=== PATIENT | male | born 1945 | race Caucasian/White ===

== ENCOUNTER → 2016-11-22 | Outpatient (REF) | payer MEDICARE, BC ==
[~2016-11-22] MED LIST: /AUGM875TA OR; /GLIM4TA OR; /MOXI40TA OR; /PANT40TA OR; /TAMS4CA GT; ALTA10CA OR; AMBI5TAB OR; ASPI81TA83 OR; AUGM250S13 PEG; BACITAB PO; BACITAB3 PO; Bacid PO; CALMOIN EXT; CAMP333T PO; CARA1TAB2 PO; CARV3.12 PO; CARV6.25 PO; CEFD300C OR; CLOP75TA2 PO; COLA100C PO; COLACE PO; DELTASONE; DIFL200T OR; DOCU10ELUD PO; DRIS1CAP PO; DRISDOL OR; FLAG500T PO; FLEX10TA2 PO; FLOM5CAP PO; LEVA750T OR; MORP10SU PO; MORP15TA2 PO; MORP15TASA PO; MULTIVIT PO; OXYC1SOL PO; OXYCO5TA PO; PARO40TA PO; PAXI40TA OR; PERC5TAB8 OR; PERC7.5T12 PO; PERC7.5T8 OR; PLAV75TA2 OR; PRED20TA OR; PRED20TAB PO; PRED5TA PO; PRED5TAB OR; PREDPOW10 GT; PREDPOW10 PO; PREV30TA PEG; PROBCAP4 PO; PROS5TAB PO; PROSCAR PO; ROBITUSSIN OR; SIMV40TA2 OR; SULF10SO3 OU; TUSSIN PO; TYLE325T5 PO; ULTR100T PO; VALI5TAB OR; VALI5TAB PO; VANC1ADVIV INJ; VIT D 2000 PO; VITAD1000T PO; VITAMIN D PO; VOLT1GEL24 TD; VYTO10TA5 OR; ZANT150T PO; ZANT1TAB PO; ZANTTAB PO; ZEBE5TAB OR; ZETI10TA OR; ZETI10TA2 PO; ZITH250T OR; ZOCO40TA PO; [UNRECOGNIZED DRUG - OTHER] PO; [UNRECOGNIZED DRUG - OTHER] TOP; [UNRECOGNIZED DRUG - REMARK] IV; bacid OR; mucinex PO; novolo; voltaren gel TOP
[2016-11-22 12:27] LABS: BASO % 0.6 % (0.0-1.0); EOS # 0.2 K/mm3 (0.0-0.50); EOS % 4.3 % (0.0-3.0); LARGE UNSTAINED CELL # 0.1 K/mm3 (0.0-0.4); LYMPH % 18.9 % (24.0-44.0); MEAN CORPUSCULAR HEMOGLOBIN 33.5 pg (27.0-33.0); MEAN CORPUSCULAR HGB CONC 33.4 g/dl (32.0-36.5); MEAN CORPUSCULAR VOLUME 100.3 fl (80.0-96.0); MONO # 0.4 K/mm3 (0.0-0.8); MONO % 7.6 % (0.0-5.0); NEUTROPHILS % 65.6 % (36.0-66.0); PLATELET COUNT, AUTOMATED 176 k/mm3 (150-450); RED CELL DISTRIBUTION WIDTH 12.5 % (11.5-14.5); WHITE BLOOD COUNT 4.6 K/mm3 (4.0-10.0)
[2016-11-22 13:15] LABS: ALBUMIN 3.1 GM/DL (3.2-5.2); ALBUMIN/GLOBULIN RATIO 0.94 (1.00-1.93); ALKALINE PHOSPHATASE 78 U/L (45-117); ALT/SGPT 17 U/L (12-78); ANION GAP 11 MEQ/L (8-16); AST/SGOT 28 U/L (15-37); BILIRUBIN,TOTAL 0.5 MG/DL (0.2-1.0); BLOOD UREA NITROGEN 10 MG/DL (7-18); CALCIUM LEVEL 8.8 MG/DL (8.8-10.2); CARBON DIOXIDE LEVEL 31 MEQ/L (21-32); CHLORIDE LEVEL 95 MEQ/L (98-107); CREATININE FOR GFR 0.72 MG/DL (0.70-1.30); GLOMERULAR FILTRATION RATE > 60.0 (>42); GLUCOSE, FASTING 80 MG/DL (83-110); SODIUM LEVEL 137 MEQ/L (136-145); TOTAL PROTEIN 6.4 GM/DL (6.4-8.2)
== END ==
LOC: M LAB REF 12:09
PROVIDERS: ATTEND Family Medicine
DX: C02.9 Malignant neoplasm of tongue, unspecified (principal)

== ENCOUNTER → 2016-12-10 | Outpatient (REF) | payer MEDICARE, BC | LOC: M LAB REF 17:00 | PROVIDERS: ATTEND Physician Assistant Medical | DX: J31.0 Chronic rhinitis (principal) ==

== ENCOUNTER → 2017-07-22 | Outpatient (REF) | payer MEDICARE, BC ==
[~2017-07-22] MED LIST changes: -BACITAB3 PO; -COLA100C PO; +COLA100C5 PO; -PARO40TA PO; +PARO40TA2 PO; +SULF10SO13 OU; -SULF10SO3 OU; +VOLT1GEL15 TD; -VOLT1GEL24 TD; -ZETI10TA2 PO; +ZETI10TA30 PO
[2017-07-22 19:07] LABS: MEAN CORPUSCULAR HEMOGLOBIN 32.7 pg (27.0-33.0); MEAN CORPUSCULAR HGB CONC 32.6 g/dl (32.0-36.5); MEAN CORPUSCULAR VOLUME 100.2 fl (80.0-96.0); PLATELET COUNT, AUTOMATED 246 10^3/uL (150-450); RED CELL DISTRIBUTION WIDTH 12.8 % (11.5-14.5); WHITE BLOOD COUNT 6.2 10^3/uL (4.0-10.0)
[2017-07-22 19:25] LABS: ALBUMIN 3.5 GM/DL (3.2-5.2); ALBUMIN/GLOBULIN RATIO 0.95 (1.00-1.93); ALKALINE PHOSPHATASE 76 U/L (45-117); ALT/SGPT 16 U/L (12-78); ANION GAP 7 MEQ/L (8-16); AST/SGOT 28 U/L (7-37); BILIRUBIN,TOTAL 0.6 MG/DL (0.2-1.0); BLOOD UREA NITROGEN 13 MG/DL (7-18); CALCIUM LEVEL 9.3 MG/DL (8.8-10.2); CARBON DIOXIDE LEVEL 30 MEQ/L (21-32); CHLORIDE LEVEL 98 MEQ/L (98-107); CHOLESTEROL LEVEL 174 MG/DL (<200); CREATININE FOR GFR 0.92 MG/DL (0.70-1.30); FREE T4 1.11 NG/DL (0.76-1.46); GLOMERULAR FILTRATION RATE > 60.0 (>42); GLUCOSE, FASTING 88 MG/DL (83-110); POTASSIUM SERUM 4.1 MEQ/L (3.5-5.1); SODIUM LEVEL 135 MEQ/L (136-145); TOTAL PROTEIN 7.2 GM/DL (6.4-8.2); TRIGLYCERIDES LEVEL 108 MG/DL (<150)
[2017-07-22 19:27] LABS: VITAMIN B12 LEVEL 752 PG/ML (247-911)
[2017-07-25 11:25] LABS: PRETREATED FOLATE FOR RBCFOL 11.8 NG/ML
== END ==
LOC: M SFHCPLAZ 17:31
PROVIDERS: ATTEND Family Medicine
DX: E44.0 Moderate protein-calorie malnutrition (principal); I10 Essential (primary) hypertension; E78.2 Mixed hyperlipidemia; M50.30 Other cervical disc degeneration, unspecified cervical region; Z23 Encounter for immunization; Z79.899 Other long term (current) drug therapy; Z79.4 Long term (current) use of insulin; Z79.52 Long term (current) use of systemic steroids
CPT/HCPCS: 36415; 80053; 80061; 82306; 82607; 82747; 84439; 84443; 85027; 86140; 90662; G0008; G0463

== ENCOUNTER → 2017-10-17 | Outpatient (REF) | payer MEDICARE, BC ==
[2017-10-17 16:32] LABS: BASO # 0.1 10^3/uL (0.0-0.2); BASO % 0.8 % (0.0-1.0); EOS # 0.1 10^3/uL (0.0-0.50); EOS % 0.8 % (0.0-3.0); HEMATOCRIT 36.3 % (42.0-52.0); HEMOGLOBIN 12.1 g/dl (14.0-18.0); IMMATURE GRANULOCYTE % 0.2 % (0-3.0); MEAN CORPUSCULAR HGB CONC 33.3 g/dl (32.0-36.5); MEAN CORPUSCULAR VOLUME 98.9 fl (80.0-96.0); MONO # 0.7 10^3/uL (0.0-0.8); MONO % 10.2 % (0.0-5.0); NEUTROPHILS # 4.7 10^3/uL (1.8-7.7); PLATELET COUNT, AUTOMATED 242 10^3/uL (150-450); RED BLOOD COUNT 3.67 10^6/uL (4.30-6.10); RED CELL DISTRIBUTION WIDTH 12.7 % (11.5-14.5); WHITE BLOOD COUNT 6.5 10^3/uL (4.0-10.0)
[2017-10-17 18:21] LABS: ALBUMIN 3.1 GM/DL (3.2-5.2); ALBUMIN/GLOBULIN RATIO 0.86 (1.00-1.93); ALKALINE PHOSPHATASE 67 U/L (45-117); ALT/SGPT 12 U/L (12-78); ANION GAP 9 MEQ/L (8-16); AST/SGOT 17 U/L (7-37); BILIRUBIN,TOTAL 0.5 MG/DL (0.2-1.0); BLOOD UREA NITROGEN 11 MG/DL (7-18); CALCIUM LEVEL 8.5 MG/DL (8.8-10.2); CARBON DIOXIDE LEVEL 30 MEQ/L (21-32); CHLORIDE LEVEL 97 MEQ/L (98-107); CREATININE FOR GFR 0.69 MG/DL (0.70-1.30); GLOMERULAR FILTRATION RATE > 60.0 (>42); GLUCOSE, FASTING 73 MG/DL (70-100); POTASSIUM SERUM 3.8 MEQ/L (3.5-5.1); SODIUM LEVEL 136 MEQ/L (136-145); TOTAL PROTEIN 6.7 GM/DL (6.4-8.2)
== END ==
LOC: M LAB REF 16:18
DX: I10 Essential (primary) hypertension (principal)
CPT/HCPCS: 83735

== ENCOUNTER 2018-01-13 21:32 | Inpatient (IN) | payer MEDICARE, BC ==
[2018-01-13] MEDS: PIPERACILLIN/TAZOBACTAM SOD 3.375 GM in D5W MINI-BAG PLUS 50 ML IV (00:07)
[2018-01-13] MEDS: VANCOMYCIN ORAL SOL 250MG/5ML ORAL SYRINGE FT (01:53)
[2018-01-13] MEDS: SIMVASTATIN 40 MG TAB PO (21:00)
[2018-01-13] MEDS: DULoxetine 20 MG CAP (CYMBALTA) PO (21:00)
[2018-01-13] MEDS: NS 1,000 ML IV (22:45)
[2018-01-13] MEDS: NS 2,180 ML in APPROPRIATE DILUENT 1 EA IV (22:50)
[2018-01-13 23:02] LABS: BASO % 0.3 % (0.0-1.0); EOS # 0.1 10^3/uL (0.0-0.50); EOS % 0.3 % (0.0-3.0); HEMOGLOBIN 13.6 g/dl (13.5-17.5); IMMATURE GRANULOCYTE % 0.5 % (0-3.0); LYMPH # 0.4 10^3/uL (1.5-4.5); LYMPH % 2.8 % (24.0-44.0); MEAN CORPUSCULAR HEMOGLOBIN 32.9 pg (27.0-33.0); MEAN CORPUSCULAR HGB CONC 33.2 g/dl (32.0-36.5); MONO # 0.7 10^3/uL (0.0-0.8); MONO % 4.6 % (0.0-5.0); NEUTROPHILS # 13.7 10^3/uL (1.8-7.7); NEUTROPHILS % 91.5 % (36.0-66.0); PLATELET COUNT, AUTOMATED 209 10^3/uL (150-450); RED BLOOD COUNT 4.14 10^6/uL (4.30-6.10); RED CELL DISTRIBUTION WIDTH 13.8 % (11.5-14.5)
[2018-01-13 23:30] LABS: ALBUMIN 3.3 GM/DL (3.2-5.2); ALKALINE PHOSPHATASE 83 U/L (45-117); ALT/SGPT 16 U/L (12-78); ANION GAP 12 MEQ/L (8-16); AST/SGOT 26 U/L (7-37); BILIRUBIN,DIRECT 0.2 MG/DL (0.0-0.2); BILIRUBIN,TOTAL 0.6 MG/DL (0.2-1.0); BLOOD UREA NITROGEN 17 MG/DL (7-18); CALCIUM LEVEL 8.8 MG/DL (8.8-10.2); CARBON DIOXIDE LEVEL 29 MEQ/L (21-32); CHLORIDE LEVEL 93 MEQ/L (98-107); CREATININE FOR GFR 1.07 MG/DL (0.70-1.30); GLOMERULAR FILTRATION RATE > 60.0 (>42); GLUCOSE, FASTING 79 MG/DL (70-100); LIPASE 78 U/L (73-393); POTASSIUM SERUM 3.6 MEQ/L (3.5-5.1); SODIUM LEVEL 134 MEQ/L (136-145); TOTAL PROTEIN 7.4 GM/DL (6.4-8.2)
[2018-01-13 23:41] LABS: KETONE, URINE AUTO RFX NEGATIVE (NEGATIVE); LEUKOCYTE ESTERASE UR AUTO RFX NEGATIVE (NEGATIVE); MUCUS, URINE RFX SMALL (NEGATIVE); NITRITE, URINE AUTO RFX NEGATIVE (NEGATIVE); RBC, URINE AUTO RFX 8 /HPF (0-3); SQUAM EPITHELIAL CELL UR AURFX 1 /HPF (0-6); TRANSITIONAL EPITHELIAL AU RFX <1 /HPF; WBC, URINE AUTO RFX 2 /HPF (0-3)
[2018-01-14] MEDS: NS 1,000 ML IV ×6 (00:12→18:20)
[2018-01-14] MEDS: VANCOMYCIN HCL 1,000 MG, VIAL MATE ADAPTER 1 EACH in D5W 250 ML IV ×2 (00:56→05:26)
[2018-01-14] MEDS ORDERED: NS 1,000 ML IV ×2 (01:23→03:30)
[2018-01-14] MEDS ORDERED: ACETAMINOPHEN TAB 650MG DOSE (2X325MG) PO (01:30)
[2018-01-14] MEDS: SODIUM CHLORIDE 0.9% 1000 ML IV (01:42)
[2018-01-14] MEDS ORDERED: NYSTATIN OINTMENT 15 GM TOP (02:00)
[2018-01-14] MEDS: LORazepam 1 MG TAB PO ×2 (03:53→20:31)
[2018-01-14] MEDS ORDERED: HEPARIN SOD (PORCINE) 5000 UNITS/ML VIAL SC (06:00)
[2018-01-14 07:56] LABS: CORTISOL BASELINE 17.5 UG/DL (4.3-22.4)
[2018-01-14 07:57] LABS: CORTISOL AM 13.3 UG/DL (4.3-22.4)
[2018-01-14] MEDS: PIPERACILLIN/TAZOBACTAM SOD 3.375 GM in D5W MINI-BAG PLUS 50 ML IV ×2 (08:23→15:22)
[2018-01-14] MEDS: FAMOTIDINE 20 MG TAB PO (08:24)
[2018-01-14] MEDS: ENOXAPARIN 40 MG/0.4 ML SYRINGE (J1650) SC (08:24)
[2018-01-14] MEDS: DULoxetine 20 MG CAP (CYMBALTA) PO ×2 (08:24→20:31)
[2018-01-14] MEDS: CLOPIDOGREL 75 MG TAB PO (08:24)
[2018-01-14] MEDS: PARoxetine 20 MG TAB PO (08:24)
[2018-01-14] MEDS: predniSONE 5 MG TAB PO (08:24)
[2018-01-14] MEDS: FOLIC ACID 1 MG TAB PO (08:24)
[2018-01-14] MEDS: ONDANSETRON 4MG/2ML VIAL (J2405) IV ×2 (09:36→13:44)
[2018-01-14 09:38] LABS: MEAN CORPUSCULAR HEMOGLOBIN 33.3 pg (27.0-33.0); MEAN CORPUSCULAR HGB CONC 33.3 g/dl (32.0-36.5); PLATELET COUNT, AUTOMATED 128 10^3/uL (150-450); RED CELL DISTRIBUTION WIDTH 13.9 % (11.5-14.5); WHITE BLOOD COUNT 10.6 10^3/uL (4.0-10.0)
[2018-01-14 09:52] LABS: ALKALINE PHOSPHATASE 55 U/L (45-117); ALT/SGPT 11 U/L (12-78); ANION GAP 9 MEQ/L (8-16); AST/SGOT 18 U/L (7-37); BILIRUBIN,TOTAL 0.6 MG/DL (0.2-1.0); BLOOD UREA NITROGEN 13 MG/DL (7-18); CARBON DIOXIDE LEVEL 22 MEQ/L (21-32); CHLORIDE LEVEL 106 MEQ/L (98-107); CREATININE FOR GFR 0.71 MG/DL (0.70-1.30); GLOMERULAR FILTRATION RATE > 60.0 (>42); GLUCOSE, FASTING 163 MG/DL (70-100); POTASSIUM SERUM 3.6 MEQ/L (3.5-5.1); SODIUM LEVEL 137 MEQ/L (136-145)
[2018-01-14 10:06] LABS: ALBUMIN/GLOBULIN RATIO 0.79 (1.00-1.93)
[2018-01-14 10:16] LABS: ALBUMIN 2.3 GM/DL (3.2-5.2); TOTAL PROTEIN 5.2 GM/DL (6.4-8.2)
[2018-01-14] MEDS: GASTROGRAFIN SOLUTION 30ML PO ×2 (11:52→12:28)
[2018-01-14] MEDS: VANCOMYCIN ORAL SOL 250MG/5ML ORAL SYRINGE PO ×2 (11:52→18:19)
[2018-01-14] MEDS ORDERED: ISOVUE-370 76% 100ML VIAL (Q9967) As Ordered (13:40)
[2018-01-14] MEDS: MORPHINE 10MG/0.5ML ORAL CONCENTRATE SOLUTION U/D SL (16:11)
[2018-01-14] MEDS ORDERED: SODIUM CHLORIDE 0.9% INJ 10 ML SYR IV (18:15)
[2018-01-14 19:31] LABS: HEMOGLOBIN 10.9 g/dl (13.5-17.5); MEAN CORPUSCULAR HEMOGLOBIN 33.5 pg (27.0-33.0); MEAN CORPUSCULAR HGB CONC 34.1 g/dl (32.0-36.5); MEAN CORPUSCULAR VOLUME 98.5 fl (80.0-96.0); PLATELET COUNT, AUTOMATED 142 10^3/uL (150-450); RED BLOOD COUNT 3.25 10^6/uL (4.30-6.10); RED CELL DISTRIBUTION WIDTH 13.7 % (11.5-14.5); WHITE BLOOD COUNT 9.5 10^3/uL (4.0-10.0)
[2018-01-14 19:52] LABS: LDH LACTATE DEHYDROGENASE 137 U/L (87-241)
[2018-01-14 19:54] LABS: LACTIC ACID SEPSIS PROTOCOL 1.1 MMOL/L (0.4-2.0)
[2018-01-14] MEDS: SIMVASTATIN 40 MG TAB PO (20:31)
[2018-01-15] MEDS: PIPERACILLIN/TAZOBACTAM SOD 3.375 GM in D5W MINI-BAG PLUS 50 ML IV ×3 (00:18→16:00)
[2018-01-15] MEDS: VANCOMYCIN ORAL SOL 250MG/5ML ORAL SYRINGE PO ×4 (00:18→17:17)
[2018-01-15] MEDS: MORPHINE 10MG/0.5ML ORAL CONCENTRATE SOLUTION U/D SL ×2 (05:45→21:16)
[2018-01-15 06:02] LABS: BASO % 0.4 % (0.0-1.0); EOS # 0.1 10^3/uL (0.0-0.50); EOS % 1.4 % (0.0-3.0); HEMATOCRIT 30.5 % (42.0-52.0); HEMOGLOBIN 10.4 g/dl (13.5-17.5); IMMATURE GRANULOCYTE % 0.3 % (0-3.0); LYMPH # 0.6 10^3/uL (1.5-4.5); LYMPH % 7.8 % (24.0-44.0); MEAN CORPUSCULAR HEMOGLOBIN 33.8 pg (27.0-33.0); MEAN CORPUSCULAR HGB CONC 34.1 g/dl (32.0-36.5); MONO # 0.7 10^3/uL (0.0-0.8); MONO % 8.5 % (0.0-5.0); NEUTROPHILS # 6.5 10^3/uL (1.8-7.7); NEUTROPHILS % 81.6 % (36.0-66.0); PLATELET COUNT, AUTOMATED 135 10^3/uL (150-450); RED BLOOD COUNT 3.08 10^6/uL (4.30-6.10); RED CELL DISTRIBUTION WIDTH 13.9 % (11.5-14.5)
[2018-01-15 06:23] LABS: ALBUMIN 2.4 GM/DL (3.2-5.2); ALBUMIN/GLOBULIN RATIO 0.73 (1.00-1.93); ALKALINE PHOSPHATASE 59 U/L (45-117); ALT/SGPT 12 U/L (12-78); ANION GAP 5 MEQ/L (8-16); AST/SGOT 20 U/L (7-37); BILIRUBIN,TOTAL 0.7 MG/DL (0.2-1.0); BLOOD UREA NITROGEN 6 MG/DL (7-18); CALCIUM LEVEL 7.8 MG/DL (8.8-10.2); CARBON DIOXIDE LEVEL 26 MEQ/L (21-32); CHLORIDE LEVEL 107 MEQ/L (98-107); GLOMERULAR FILTRATION RATE > 60.0 (>42); GLUCOSE, FASTING 78 MG/DL (70-100); MAGNESIUM LEVEL 1.5 MG/DL (1.8-2.4); POTASSIUM SERUM 3.5 MEQ/L (3.5-5.1); SODIUM LEVEL 138 MEQ/L (136-145); TOTAL PROTEIN 5.7 GM/DL (6.4-8.2)
[2018-01-15] MEDS: PARoxetine 20 MG TAB PO (08:48)
[2018-01-15] MEDS: FOLIC ACID 1 MG TAB PO (08:48)
[2018-01-15] MEDS: DULoxetine 20 MG CAP (CYMBALTA) PO ×2 (08:48→20:34)
[2018-01-15] MEDS: FAMOTIDINE 20 MG TAB PO (08:48)
[2018-01-15] MEDS: predniSONE 5 MG TAB PO (08:48)
[2018-01-15] MEDS: SODIUM CHLORIDE 0.9% INJ 10 ML SYR IV (08:49)
[2018-01-15] MEDS: LORazepam 1 MG TAB PO (10:38)
[2018-01-15] MEDS: CLOPIDOGREL 75 MG TAB PO (10:38)
[2018-01-15] MEDS: NS 1,000 ML IV (10:39)
[2018-01-15] MEDS: ENOXAPARIN 40 MG/0.4 ML SYRINGE (J1650) SC (10:39)
[2018-01-15] MEDS: MAG SULF 1GM/100ML (MAG RUN) 1 GM in APPROPRIATE DILUENT 1 EA IV (10:39)
[2018-01-15] MEDS: FLEET ENEMA PR (12:03)
[2018-01-15] MEDS ORDERED: PROPOFOL 200 MG/20 ML VIAL As Ordered (13:28)
[2018-01-15] MEDS: SIMVASTATIN 40 MG TAB PO (20:34)
[2018-01-16] MEDS: VANCOMYCIN ORAL SOL 250MG/5ML ORAL SYRINGE PO ×5 (00:20→23:37)
[2018-01-16] MEDS: LORazepam 1 MG TAB PO ×2 (00:20→20:15)
[2018-01-16 06:51] LABS: BASO % 0.3 % (0.0-1.0); EOS # 0.1 10^3/uL (0.0-0.50); EOS % 1.8 % (0.0-3.0); HEMATOCRIT 29.6 % (42.0-52.0); IMMATURE GRANULOCYTE % 0.3 % (0-3.0); LYMPH # 0.8 10^3/uL (1.5-4.5); LYMPH % 11.4 % (24.0-44.0); MEAN CORPUSCULAR HEMOGLOBIN 33.1 pg (27.0-33.0); MEAN CORPUSCULAR HGB CONC 33.8 g/dl (32.0-36.5); MONO # 0.8 10^3/uL (0.0-0.8); MONO % 11.2 % (0.0-5.0); NEUTROPHILS # 5.1 10^3/uL (1.8-7.7); PLATELET COUNT, AUTOMATED 148 10^3/uL (150-450); RED BLOOD COUNT 3.02 10^6/uL (4.30-6.10); RED CELL DISTRIBUTION WIDTH 13.7 % (11.5-14.5); WHITE BLOOD COUNT 6.8 10^3/uL (4.0-10.0)
[2018-01-16 07:13] LABS: ALBUMIN 2.4 GM/DL (3.2-5.2); ALBUMIN/GLOBULIN RATIO 0.75 (1.00-1.93); ALKALINE PHOSPHATASE 54 U/L (45-117); ALT/SGPT 12 U/L (12-78); ANION GAP 5 MEQ/L (8-16); AST/SGOT 16 U/L (7-37); BILIRUBIN,TOTAL 0.5 MG/DL (0.2-1.0); BLOOD UREA NITROGEN 7 MG/DL (7-18); CALCIUM LEVEL 7.8 MG/DL (8.8-10.2); CARBON DIOXIDE LEVEL 30 MEQ/L (21-32); CHLORIDE LEVEL 104 MEQ/L (98-107); CREATININE FOR GFR 0.59 MG/DL (0.70-1.30); GLOMERULAR FILTRATION RATE > 60.0 (>42); GLUCOSE, FASTING 125 MG/DL (70-100); MAGNESIUM LEVEL 1.6 MG/DL (1.8-2.4); POTASSIUM SERUM 3.4 MEQ/L (3.5-5.1); SODIUM LEVEL 139 MEQ/L (136-145); TOTAL PROTEIN 5.6 GM/DL (6.4-8.2)
[2018-01-16] MEDS: CARVedilol 3.125 MG TAB PO ×3 (09:00→20:18)
[2018-01-16] MEDS: SODIUM CHLORIDE 0.9% INJ 10 ML SYR IV (09:42)
[2018-01-16] MEDS: FOLIC ACID 1 MG TAB PO (09:42)
[2018-01-16] MEDS: PARoxetine 20 MG TAB PO (09:42)
[2018-01-16] MEDS: ENOXAPARIN 40 MG/0.4 ML SYRINGE (J1650) SC (09:42)
[2018-01-16] MEDS: FAMOTIDINE 20 MG TAB PO (09:42)
[2018-01-16] MEDS: DULoxetine 20 MG CAP (CYMBALTA) PO ×2 (09:43→20:15)
[2018-01-16] MEDS: CLOPIDOGREL 75 MG TAB PO (09:43)
[2018-01-16] MEDS: predniSONE 5 MG TAB PO (09:43)
[2018-01-16] MEDS: POTASSIUM CHLORIDE 10% LIQ 20 MEQ/15 ML UDC PEG (12:13)
[2018-01-16] MEDS: MAG SULF 1GM/100ML (MAG RUN) 1 GM in APPROPRIATE DILUENT 1 EA IV ×2 (12:14→13:34)
[2018-01-16] MEDS: FIDAXOMICIN 200 MG TAB (DIFICID) PO (20:15)
[2018-01-16] MEDS: SIMVASTATIN 40 MG TAB PO (20:15)
[2018-01-16] MEDS: MORPHINE 10MG/0.5ML ORAL CONCENTRATE SOLUTION U/D SL (23:42)
[2018-01-17] MEDS: VANCOMYCIN ORAL SOL 250MG/5ML ORAL SYRINGE PO ×4 (06:04→23:10)
[2018-01-17] MEDS: SODIUM CHLORIDE 0.9% INJ 10 ML SYR IV ×3 (06:05→09:54)
[2018-01-17 06:23] LABS: BASO % 0.3 % (0.0-1.0); EOS # 0.1 10^3/uL (0.0-0.50); EOS % 1.4 % (0.0-3.0); HEMATOCRIT 32.2 % (42.0-52.0); HEMATOCRIT 32.7 % (42.0-52.0); HEMOGLOBIN 11.1 g/dl (13.5-17.5); IMMATURE GRANULOCYTE % 0.3 % (0-3.0); LYMPH % 17.4 % (24.0-44.0); MEAN CORPUSCULAR HEMOGLOBIN 32.8 pg (27.0-33.0); MEAN CORPUSCULAR HEMOGLOBIN 33.2 pg (27.0-33.0); MEAN CORPUSCULAR HGB CONC 33.9 g/dl (32.0-36.5); MEAN CORPUSCULAR HGB CONC 34.2 g/dl (32.0-36.5); MEAN CORPUSCULAR VOLUME 96.7 fl (80.0-96.0); MEAN CORPUSCULAR VOLUME 97.3 fl (80.0-96.0); MONO # 0.8 10^3/uL (0.0-0.8); MONO % 13.8 % (0.0-5.0); NEUTROPHILS # 3.9 10^3/uL (1.8-7.7); NEUTROPHILS % 66.8 % (36.0-66.0); PLATELET COUNT, AUTOMATED 172 10^3/uL (150-450); PLATELET COUNT, AUTOMATED 181 10^3/uL (150-450); RED BLOOD COUNT 3.31 10^6/uL (4.30-6.10); RED BLOOD COUNT 3.38 10^6/uL (4.30-6.10); RED CELL DISTRIBUTION WIDTH 13.5 % (11.5-14.5); RED CELL DISTRIBUTION WIDTH 13.6 % (11.5-14.5); WHITE BLOOD COUNT 5.9 10^3/uL (4.0-10.0); WHITE BLOOD COUNT 6.1 10^3/uL (4.0-10.0)
[2018-01-17 06:47] LABS: ALBUMIN 2.6 GM/DL (3.2-5.2); ALBUMIN/GLOBULIN RATIO 0.74 (1.00-1.93); ALKALINE PHOSPHATASE 58 U/L (45-117); ALT/SGPT 13 U/L (12-78); ANION GAP 6 MEQ/L (8-16); AST/SGOT 16 U/L (7-37); BILIRUBIN,TOTAL 0.5 MG/DL (0.2-1.0); BLOOD UREA NITROGEN 6 MG/DL (7-18); CALCIUM LEVEL 8.1 MG/DL (8.8-10.2); CARBON DIOXIDE LEVEL 30 MEQ/L (21-32); CHLORIDE LEVEL 102 MEQ/L (98-107); CREATININE FOR GFR 0.59 MG/DL (0.70-1.30); GLOMERULAR FILTRATION RATE > 60.0 (>42); GLUCOSE, FASTING 85 MG/DL (70-100); POTASSIUM SERUM 3.9 MEQ/L (3.5-5.1); SODIUM LEVEL 138 MEQ/L (136-145); TOTAL PROTEIN 6.1 GM/DL (6.4-8.2)
[2018-01-17] MEDS: ENOXAPARIN 40 MG/0.4 ML SYRINGE (J1650) SC (09:52)
[2018-01-17] MEDS: FAMOTIDINE 20 MG TAB PO (09:54)
[2018-01-17] MEDS: predniSONE 5 MG TAB PO (09:54)
[2018-01-17] MEDS: FIDAXOMICIN 200 MG TAB (DIFICID) PO ×2 (09:55→20:28)
[2018-01-17] MEDS: FOLIC ACID 1 MG TAB PO (09:55)
[2018-01-17] MEDS: CLOPIDOGREL 75 MG TAB PO (09:56)
[2018-01-17] MEDS: CARVedilol 3.125 MG TAB PO ×2 (09:57→20:29)
[2018-01-17] MEDS: PARoxetine 20 MG TAB PO (09:57)
[2018-01-17] MEDS: DULoxetine 20 MG CAP (CYMBALTA) PO ×2 (09:58→20:28)
[2018-01-17] MEDS: LORazepam 1 MG TAB PO ×2 (10:31→18:04)
[2018-01-17] MEDS: SIMVASTATIN 40 MG TAB PO (20:28)
[2018-01-17] MEDS: MORPHINE 10MG/0.5ML ORAL CONCENTRATE SOLUTION U/D SL (23:44)
[2018-01-18] MEDS: VANCOMYCIN ORAL SOL 250MG/5ML ORAL SYRINGE PO ×4 (05:35→23:56)
[2018-01-18 05:50] LABS: BASO % 0.6 % (0.0-1.0); EOS # 0.1 10^3/uL (0.0-0.50); EOS % 1.4 % (0.0-3.0); HEMATOCRIT 31.2 % (42.0-52.0); HEMOGLOBIN 10.6 g/dl (13.5-17.5); IMMATURE GRANULOCYTE % 0.2 % (0-3.0); LYMPH # 1.2 10^3/uL (1.5-4.5); LYMPH % 23.2 % (24.0-44.0); MEAN CORPUSCULAR HEMOGLOBIN 33.2 pg (27.0-33.0); MEAN CORPUSCULAR VOLUME 97.8 fl (80.0-96.0); MONO # 0.8 10^3/uL (0.0-0.8); MONO % 15.4 % (0.0-5.0); NEUTROPHILS # 3.1 10^3/uL (1.8-7.7); NEUTROPHILS % 59.2 % (36.0-66.0); PLATELET COUNT, AUTOMATED 177 10^3/uL (150-450); RED BLOOD COUNT 3.19 10^6/uL (4.30-6.10); RED CELL DISTRIBUTION WIDTH 13.7 % (11.5-14.5); WHITE BLOOD COUNT 5.2 10^3/uL (4.0-10.0)
[2018-01-18 08:08] LABS: ALBUMIN 2.7 GM/DL (3.2-5.2); ALBUMIN/GLOBULIN RATIO 0.73 (1.00-1.93); ALKALINE PHOSPHATASE 54 U/L (45-117); ALT/SGPT 10 U/L (12-78); ANION GAP 5 MEQ/L (8-16); AST/SGOT 17 U/L (7-37); BILIRUBIN,TOTAL 0.5 MG/DL (0.2-1.0); BLOOD UREA NITROGEN 9 MG/DL (7-18); CALCIUM LEVEL 8.3 MG/DL (8.8-10.2); CARBON DIOXIDE LEVEL 31 MEQ/L (21-32); CHLORIDE LEVEL 100 MEQ/L (98-107); CREATININE FOR GFR 0.66 MG/DL (0.70-1.30); GLOMERULAR FILTRATION RATE > 60.0 (>42); GLUCOSE, FASTING 78 MG/DL (70-100); MAGNESIUM LEVEL 1.7 MG/DL (1.8-2.4); POTASSIUM SERUM 4.3 MEQ/L (3.5-5.1); SODIUM LEVEL 136 MEQ/L (136-145); TOTAL PROTEIN 6.4 GM/DL (6.4-8.2)
[2018-01-18] MEDS: SODIUM CHLORIDE 0.9% INJ 10 ML SYR IV ×2 (09:00→09:24)
[2018-01-18] MEDS: PARoxetine 20 MG TAB PO (09:21)
[2018-01-18] MEDS: FIDAXOMICIN 200 MG TAB (DIFICID) PO ×2 (09:21→20:47)
[2018-01-18] MEDS: DULoxetine 20 MG CAP (CYMBALTA) PO ×2 (09:21→20:47)
[2018-01-18] MEDS: FAMOTIDINE 20 MG TAB PO (09:21)
[2018-01-18] MEDS: predniSONE 5 MG TAB PO (09:22)
[2018-01-18] MEDS: CLOPIDOGREL 75 MG TAB PO (09:22)
[2018-01-18] MEDS: CARVedilol 3.125 MG TAB PO ×2 (09:22→20:47)
[2018-01-18] MEDS: FOLIC ACID 1 MG TAB PO (09:22)
[2018-01-18] MEDS: ENOXAPARIN 40 MG/0.4 ML SYRINGE (J1650) SC (09:23)
[2018-01-18] MEDS: MORPHINE 10MG/0.5ML ORAL CONCENTRATE SOLUTION U/D SL ×2 (09:32→23:57)
[2018-01-18] MEDS: LORazepam 1 MG TAB PO (14:03)
[2018-01-18] MEDS: SIMVASTATIN 40 MG TAB PO (20:47)
[2018-01-19] MEDS: VANCOMYCIN ORAL SOL 250MG/5ML ORAL SYRINGE PO ×2 (05:53→12:59)
[2018-01-19] MEDS: LORazepam 1 MG TAB PO ×2 (06:07→21:09)
[2018-01-19 06:16] LABS: BASO % 0.3 % (0.0-1.0); EOS # 0.1 10^3/uL (0.0-0.50); EOS % 1.1 % (0.0-3.0); HEMATOCRIT 30.9 % (42.0-52.0); HEMOGLOBIN 10.6 g/dl (13.5-17.5); IMMATURE GRANULOCYTE % 0.3 % (0-3.0); LYMPH # 1.1 10^3/uL (1.5-4.5); LYMPH % 17.7 % (24.0-44.0); MEAN CORPUSCULAR HEMOGLOBIN 33.3 pg (27.0-33.0); MEAN CORPUSCULAR HGB CONC 34.3 g/dl (32.0-36.5); MEAN CORPUSCULAR VOLUME 97.2 fl (80.0-96.0); MONO # 0.9 10^3/uL (0.0-0.8); MONO % 14.2 % (0.0-5.0); NEUTROPHILS # 4.2 10^3/uL (1.8-7.7); NEUTROPHILS % 66.4 % (36.0-66.0); PLATELET COUNT, AUTOMATED 198 10^3/uL (150-450); RED BLOOD COUNT 3.18 10^6/uL (4.30-6.10); RED CELL DISTRIBUTION WIDTH 13.5 % (11.5-14.5); WHITE BLOOD COUNT 6.4 10^3/uL (4.0-10.0)
[2018-01-19 06:57] LABS: ALBUMIN 2.6 GM/DL (3.2-5.2); ALBUMIN/GLOBULIN RATIO 0.68 (1.00-1.93); ALKALINE PHOSPHATASE 56 U/L (45-117); ALT/SGPT 12 U/L (12-78); ANION GAP 6 MEQ/L (8-16); AST/SGOT 20 U/L (7-37); BILIRUBIN,TOTAL 0.4 MG/DL (0.2-1.0); BLOOD UREA NITROGEN 11 MG/DL (7-18); CALCIUM LEVEL 8.2 MG/DL (8.8-10.2); CARBON DIOXIDE LEVEL 31 MEQ/L (21-32); CHLORIDE LEVEL 99 MEQ/L (98-107); CREATININE FOR GFR 0.68 MG/DL (0.70-1.30); GLOMERULAR FILTRATION RATE > 60.0 (>42); GLUCOSE, FASTING 81 MG/DL (70-100); MAGNESIUM LEVEL 1.8 MG/DL (1.8-2.4); POTASSIUM SERUM 4.2 MEQ/L (3.5-5.1); SODIUM LEVEL 136 MEQ/L (136-145); TOTAL PROTEIN 6.4 GM/DL (6.4-8.2)
[2018-01-19] MEDS: SODIUM CHLORIDE 0.9% INJ 10 ML SYR IV ×2 (09:00)
[2018-01-19] MEDS: FIDAXOMICIN 200 MG TAB (DIFICID) PO (09:46)
[2018-01-19] MEDS: FAMOTIDINE 20 MG TAB PO (09:46)
[2018-01-19] MEDS: predniSONE 5 MG TAB PO (09:47)
[2018-01-19] MEDS: CLOPIDOGREL 75 MG TAB PO (09:47)
[2018-01-19] MEDS: FOLIC ACID 1 MG TAB PO (09:47)
[2018-01-19] MEDS: CARVedilol 3.125 MG TAB PO ×2 (09:47→21:01)
[2018-01-19] MEDS: DULoxetine 20 MG CAP (CYMBALTA) PO ×2 (09:47→21:00)
[2018-01-19] MEDS: PARoxetine 20 MG TAB PO (09:47)
[2018-01-19] MEDS: ENOXAPARIN 40 MG/0.4 ML SYRINGE (J1650) SC (09:48)
[2018-01-19] MEDS: SIMVASTATIN 40 MG TAB PO (21:00)
[2018-01-20] MEDS: MORPHINE 10MG/0.5ML ORAL CONCENTRATE SOLUTION U/D SL (00:46)
[2018-01-20 06:13] LABS: BASO % 0.3 % (0.0-1.0); EOS # 0.1 10^3/uL (0.0-0.50); HEMATOCRIT 31.7 % (42.0-52.0); IMMATURE GRANULOCYTE % 0.5 % (0-3.0); LYMPH # 1.2 10^3/uL (1.5-4.5); LYMPH % 18.3 % (24.0-44.0); MEAN CORPUSCULAR HEMOGLOBIN 33.5 pg (27.0-33.0); MEAN CORPUSCULAR HGB CONC 34.7 g/dl (32.0-36.5); MEAN CORPUSCULAR VOLUME 96.6 fl (80.0-96.0); MONO # 0.8 10^3/uL (0.0-0.8); MONO % 13.4 % (0.0-5.0); NEUTROPHILS # 4.2 10^3/uL (1.8-7.7); NEUTROPHILS % 66.5 % (36.0-66.0); PLATELET COUNT, AUTOMATED 210 10^3/uL (150-450); RED BLOOD COUNT 3.28 10^6/uL (4.30-6.10); RED CELL DISTRIBUTION WIDTH 13.7 % (11.5-14.5); WHITE BLOOD COUNT 6.3 10^3/uL (4.0-10.0)
[2018-01-20 06:34] LABS: ALBUMIN 2.7 GM/DL (3.2-5.2); ALBUMIN/GLOBULIN RATIO 0.69 (1.00-1.93); ALKALINE PHOSPHATASE 57 U/L (45-117); ALT/SGPT 13 U/L (12-78); ANION GAP 8 MEQ/L (8-16); AST/SGOT 21 U/L (7-37); BILIRUBIN,TOTAL 0.5 MG/DL (0.2-1.0); BLOOD UREA NITROGEN 11 MG/DL (7-18); CALCIUM LEVEL 8.3 MG/DL (8.8-10.2); CARBON DIOXIDE LEVEL 29 MEQ/L (21-32); CHLORIDE LEVEL 99 MEQ/L (98-107); CREATININE FOR GFR 0.64 MG/DL (0.70-1.30); GLOMERULAR FILTRATION RATE > 60.0 (>42); GLUCOSE, FASTING 84 MG/DL (70-100); MAGNESIUM LEVEL 1.8 MG/DL (1.8-2.4); POTASSIUM SERUM 4.2 MEQ/L (3.5-5.1); SODIUM LEVEL 136 MEQ/L (136-145); TOTAL PROTEIN 6.6 GM/DL (6.4-8.2)
[2018-01-20] MEDS: PARoxetine 20 MG TAB PO (08:48)
[2018-01-20] MEDS: LORazepam 1 MG TAB PO ×2 (08:48→19:30)
[2018-01-20] MEDS: predniSONE 5 MG TAB PO (08:48)
[2018-01-20] MEDS: DULoxetine 20 MG CAP (CYMBALTA) PO ×2 (08:48→20:21)
[2018-01-20] MEDS: FOLIC ACID 1 MG TAB PO (08:48)
[2018-01-20] MEDS: FAMOTIDINE 20 MG TAB PO (08:48)
[2018-01-20] MEDS: ENOXAPARIN 40 MG/0.4 ML SYRINGE (J1650) SC (08:49)
[2018-01-20] MEDS: SODIUM CHLORIDE 0.9% INJ 10 ML SYR IV ×2 (08:49→08:50)
[2018-01-20] MEDS: CLOPIDOGREL 75 MG TAB PO (08:49)
[2018-01-20] MEDS: CARVedilol 3.125 MG TAB PO ×2 (08:51→20:22)
[2018-01-20] MEDS: GOLYTELY SOLN 4000 ML BTL PO (19:30)
[2018-01-20] MEDS: SIMVASTATIN 40 MG TAB PO (20:22)
[2018-01-21 05:25] LABS: BASO % 0.6 % (0.0-1.0); EOS # 0.1 10^3/uL (0.0-0.50); EOS % 0.9 % (0.0-3.0); HEMATOCRIT 32.7 % (42.0-52.0); HEMOGLOBIN 11.3 g/dl (13.5-17.5); IMMATURE GRANULOCYTE % 0.3 % (0-3.0); LYMPH % 15.4 % (24.0-44.0); MEAN CORPUSCULAR HEMOGLOBIN 33.1 pg (27.0-33.0); MEAN CORPUSCULAR HGB CONC 34.6 g/dl (32.0-36.5); MEAN CORPUSCULAR VOLUME 95.9 fl (80.0-96.0); MONO # 0.8 10^3/uL (0.0-0.8); MONO % 12.5 % (0.0-5.0); NEUTROPHILS # 4.5 10^3/uL (1.8-7.7); NEUTROPHILS % 70.3 % (36.0-66.0); PLATELET COUNT, AUTOMATED 228 10^3/uL (150-450); RED BLOOD COUNT 3.41 10^6/uL (4.30-6.10); RED CELL DISTRIBUTION WIDTH 13.4 % (11.5-14.5); WHITE BLOOD COUNT 6.4 10^3/uL (4.0-10.0)
[2018-01-21 07:17] LABS: ALBUMIN 2.9 GM/DL (3.2-5.2); ALBUMIN/GLOBULIN RATIO 0.78 (1.00-1.93); ALKALINE PHOSPHATASE 66 U/L (45-117); ALT/SGPT 20 U/L (12-78); ANION GAP 10 MEQ/L (8-16); AST/SGOT 34 U/L (7-37); BILIRUBIN,TOTAL 0.5 MG/DL (0.2-1.0); BLOOD UREA NITROGEN 8 MG/DL (7-18); CALCIUM LEVEL 8.2 MG/DL (8.8-10.2); CARBON DIOXIDE LEVEL 27 MEQ/L (21-32); CHLORIDE LEVEL 99 MEQ/L (98-107); CREATININE FOR GFR 0.55 MG/DL (0.70-1.30); GLOMERULAR FILTRATION RATE > 60.0 (>42); GLUCOSE, FASTING 65 MG/DL (70-100); MAGNESIUM LEVEL 1.8 MG/DL (1.8-2.4); POTASSIUM SERUM 3.9 MEQ/L (3.5-5.1); SODIUM LEVEL 136 MEQ/L (136-145); TOTAL PROTEIN 6.6 GM/DL (6.4-8.2)
[2018-01-21] MEDS: CARVedilol 3.125 MG TAB PO ×2 (08:01→20:02)
[2018-01-21] MEDS: DULoxetine 20 MG CAP (CYMBALTA) PO ×2 (08:01→20:02)
[2018-01-21] MEDS: predniSONE 5 MG TAB PO (08:01)
[2018-01-21] MEDS: PARoxetine 20 MG TAB PO (08:02)
[2018-01-21] MEDS: FAMOTIDINE 20 MG TAB PO (08:02)
[2018-01-21] MEDS: FOLIC ACID 1 MG TAB PO (08:02)
[2018-01-21] MEDS: CLOPIDOGREL 75 MG TAB PO (08:02)
[2018-01-21] MEDS ORDERED: NON-FORMULARY COMPOUNDED MEDICATION GT (09:00)
[2018-01-21] MEDS: LORazepam 1 MG TAB PO ×4 (09:10→22:21)
[2018-01-21] MEDS: SODIUM CHLORIDE 0.9% INJ 10 ML SYR IV ×2 (09:10)
[2018-01-21] MEDS: FLEET ENEMA PR (10:50)
[2018-01-21] MEDS: FECAL MICROBIOTA PREPARATION 250 ML BTL (J3590) XX (13:00)
[2018-01-21] MEDS: MORPHINE 10MG/0.5ML ORAL CONCENTRATE SOLUTION U/D SL (19:58)
[2018-01-21] MEDS: SIMVASTATIN 40 MG TAB PO (20:02)
[2018-01-22] MEDS: LORazepam 1 MG TAB PO ×2 (06:38→20:08)
[2018-01-22] MEDS: FOLIC ACID 1 MG TAB PO (09:25)
[2018-01-22] MEDS: PARoxetine 20 MG TAB PO (09:25)
[2018-01-22] MEDS: FAMOTIDINE 20 MG TAB PO (09:25)
[2018-01-22] MEDS: CLOPIDOGREL 75 MG TAB PO (09:26)
[2018-01-22] MEDS: SODIUM CHLORIDE 0.9% INJ 10 ML SYR IV ×2 (09:26→09:27)
[2018-01-22] MEDS: CARVedilol 3.125 MG TAB PO ×2 (09:26→20:11)
[2018-01-22] MEDS: predniSONE 5 MG TAB PO (09:26)
[2018-01-22] MEDS: DULoxetine 20 MG CAP (CYMBALTA) PO ×2 (09:27→20:09)
[2018-01-22 10:10] LABS: BASO % 0.3 % (0.0-1.0); EOS # 0.1 10^3/uL (0.0-0.50); EOS % 1.7 % (0.0-3.0); HEMATOCRIT 31.5 % (42.0-52.0); HEMOGLOBIN 10.7 g/dl (13.5-17.5); IMMATURE GRANULOCYTE % 0.5 % (0-3.0); LYMPH # 0.6 10^3/uL (1.5-4.5); LYMPH % 10.5 % (24.0-44.0); MEAN CORPUSCULAR HEMOGLOBIN 32.7 pg (27.0-33.0); MEAN CORPUSCULAR VOLUME 96.3 fl (80.0-96.0); MONO # 0.7 10^3/uL (0.0-0.8); MONO % 11.6 % (0.0-5.0); NEUTROPHILS # 4.4 10^3/uL (1.8-7.7); NEUTROPHILS % 75.4 % (36.0-66.0); PLATELET COUNT, AUTOMATED 225 10^3/uL (150-450); RED BLOOD COUNT 3.27 10^6/uL (4.30-6.10); RED CELL DISTRIBUTION WIDTH 13.6 % (11.5-14.5); WHITE BLOOD COUNT 5.8 10^3/uL (4.0-10.0)
[2018-01-22 10:55] LABS: ALBUMIN 2.7 GM/DL (3.2-5.2); ALBUMIN/GLOBULIN RATIO 0.79 (1.00-1.93); ALKALINE PHOSPHATASE 58 U/L (45-117); ALT/SGPT 13 U/L (12-78); ANION GAP 7 MEQ/L (8-16); AST/SGOT 19 U/L (7-37); BILIRUBIN,TOTAL 0.7 MG/DL (0.2-1.0); BLOOD UREA NITROGEN 9 MG/DL (7-18); CALCIUM LEVEL 8.2 MG/DL (8.8-10.2); CARBON DIOXIDE LEVEL 27 MEQ/L (21-32); CHLORIDE LEVEL 98 MEQ/L (98-107); CREATININE FOR GFR 0.59 MG/DL (0.70-1.30); GLOMERULAR FILTRATION RATE > 60.0 (>42); GLUCOSE, FASTING 76 MG/DL (70-100); POTASSIUM SERUM 4.1 MEQ/L (3.5-5.1); SODIUM LEVEL 132 MEQ/L (136-145); TOTAL PROTEIN 6.1 GM/DL (6.4-8.2)
[2018-01-22] MEDS: MORPHINE 10MG/0.5ML ORAL CONCENTRATE SOLUTION U/D SL (16:54)
[2018-01-22] MEDS: SIMVASTATIN 40 MG TAB PO (20:09)
[2018-01-22] MEDS: traZODone 50 MG TAB PO (21:32)
[2018-01-22] MEDS: NYSTATIN 100,000 UNITS/GM TOPICAL PWD 15 GM TOP (21:33)
[2018-01-23] MEDS: LORazepam 1 MG TAB PO (05:58)
[2018-01-23] MEDS: SODIUM CHLORIDE 0.9% INJ 10 ML SYR IV ×3 (05:58→09:08)
[2018-01-23 06:14] LABS: BASO % 0.6 % (0.0-1.0); EOS # 0.1 10^3/uL (0.0-0.50); EOS % 2.1 % (0.0-3.0); HEMATOCRIT 30.4 % (42.0-52.0); HEMOGLOBIN 10.3 g/dl (13.5-17.5); IMMATURE GRANULOCYTE % 0.4 % (0-3.0); LYMPH # 0.9 10^3/uL (1.5-4.5); LYMPH % 17.6 % (24.0-44.0); MEAN CORPUSCULAR HEMOGLOBIN 32.9 pg (27.0-33.0); MEAN CORPUSCULAR HGB CONC 33.9 g/dl (32.0-36.5); MEAN CORPUSCULAR VOLUME 97.1 fl (80.0-96.0); MONO # 0.6 10^3/uL (0.0-0.8); NEUTROPHILS # 3.6 10^3/uL (1.8-7.7); NEUTROPHILS % 67.3 % (36.0-66.0); PLATELET COUNT, AUTOMATED 234 10^3/uL (150-450); RED BLOOD COUNT 3.13 10^6/uL (4.30-6.10); RED CELL DISTRIBUTION WIDTH 13.4 % (11.5-14.5); WHITE BLOOD COUNT 5.3 10^3/uL (4.0-10.0)
[2018-01-23 07:22] LABS: ALBUMIN 2.6 GM/DL (3.2-5.2); ALBUMIN/GLOBULIN RATIO 0.79 (1.00-1.93); ALKALINE PHOSPHATASE 51 U/L (45-117); ALT/SGPT 12 U/L (12-78); ANION GAP 5 MEQ/L (8-16); AST/SGOT 18 U/L (7-37); BILIRUBIN,TOTAL 0.4 MG/DL (0.2-1.0); BLOOD UREA NITROGEN 8 MG/DL (7-18); CALCIUM LEVEL 8.2 MG/DL (8.8-10.2); CARBON DIOXIDE LEVEL 30 MEQ/L (21-32); CHLORIDE LEVEL 97 MEQ/L (98-107); GLOMERULAR FILTRATION RATE > 60.0 (>42); GLUCOSE, FASTING 83 MG/DL (70-100); POTASSIUM SERUM 3.9 MEQ/L (3.5-5.1); SODIUM LEVEL 132 MEQ/L (136-145); TOTAL PROTEIN 5.9 GM/DL (6.4-8.2)
[2018-01-23] MEDS: predniSONE 5 MG TAB PO (09:06)
[2018-01-23] MEDS: PARoxetine 20 MG TAB PO (09:06)
[2018-01-23] MEDS: CLOPIDOGREL 75 MG TAB PO (09:07)
[2018-01-23] MEDS: DULoxetine 20 MG CAP (CYMBALTA) PO (09:07)
[2018-01-23] MEDS: FOLIC ACID 1 MG TAB PO (09:07)
[2018-01-23] MEDS: CARVedilol 3.125 MG TAB PO (09:07)
[2018-01-23] MEDS: FAMOTIDINE 20 MG TAB PO (09:07)
[2018-01-23] MEDS: MORPHINE 10MG/0.5ML ORAL CONCENTRATE SOLUTION U/D SL (09:25)
[2018-01-23 14:16] LABS: PANCREATIC ELASTASE STOOL >500 (>200)
== END 2018-01-23 14:05 | disposition home health service (06) | DRG 871 ==
LOC: M MS5PR 01-16 18:21 → M ED 21:32 → M ED INP 01-14 01:23 → M ICU 01-14 03:44
PROVIDERS: Internal Medicine
PROC: 0DJD8ZZ Inspection of Lower Intestinal Tract, Via Natural or Artificial Opening Endoscopic (ICD-10-PCS; principal; 2018-01-15 13:00)
PROC: 0DJD8ZZ Inspection of Lower Intestinal Tract, Via Natural or Artificial Opening Endoscopic (ICD-10-PCS; 2018-01-15 13:20)
DX: A41.9 Sepsis, unspecified organism (principal); R57.1 Hypovolemic shock; E46 Unspecified protein-calorie malnutrition; R19.7 Diarrhea, unspecified; F41.9 Anxiety disorder, unspecified; F32.9 Major depressive disorder, single episode, unspecified; K21.9 Gastro-esophageal reflux disease without esophagitis; N40.0 Benign prostatic hyperplasia without lower urinary tract symptoms; G47.00 Insomnia, unspecified; Z79.899 Other long term (current) drug therapy; E83.42 Hypomagnesemia; I25.10 Atherosclerotic heart disease of native coronary artery without angina pectoris; Z85.810 Personal history of malignant neoplasm of tongue; Z93.1 Gastrostomy status; R13.10 Dysphagia, unspecified; Z79.4 Long term (current) use of insulin; D12.3 Benign neoplasm of transverse colon; K57.30 Diverticulosis of large intestine without perforation or abscess without bleeding; K20.8 Other esophagitis; Z92.3 Personal history of irradiation

== ENCOUNTER 2018-05-09 09:14 | Emergency (ER) | payer MEDICARE, BC ==
[2018-05-09 10:34] LABS: BASO % 0.3 % (0.0-1.0); EOS # 0.1 10^3/uL (0.0-0.50); EOS % 1.1 % (0.0-3.0); HEMATOCRIT 32.8 % (42.0-52.0); HEMOGLOBIN 10.7 g/dl (13.5-17.5); IMMATURE GRANULOCYTE % 0.3 % (0-3.0); LYMPH # 0.9 10^3/uL (1.5-4.5); LYMPH % 11.6 % (24.0-44.0); MEAN CORPUSCULAR HEMOGLOBIN 32.3 pg (27.0-33.0); MEAN CORPUSCULAR HGB CONC 32.6 g/dl (32.0-36.5); MEAN CORPUSCULAR VOLUME 99.1 fl (80.0-96.0); MONO % 12.7 % (0.0-5.0); NEUTROPHILS # 5.5 10^3/uL (1.8-7.7); PLATELET COUNT, AUTOMATED 209 10^3/uL (150-450); RED BLOOD COUNT 3.31 10^6/uL (4.30-6.10); WHITE BLOOD COUNT 7.5 10^3/uL (4.0-10.0)
[2018-05-09 10:55] LABS: ALBUMIN 2.2 GM/DL (3.2-5.2); ALBUMIN/GLOBULIN RATIO 0.55 (1.00-1.93); ALKALINE PHOSPHATASE 65 U/L (45-117); ALT/SGPT 8 U/L (12-78); ANION GAP 8 MEQ/L (8-16); AST/SGOT 12 U/L (7-37); BILIRUBIN,DIRECT 0.2 MG/DL (0.0-0.2); BILIRUBIN,TOTAL 0.5 MG/DL (0.2-1.0); BLOOD UREA NITROGEN 15 MG/DL (7-18); CALCIUM LEVEL 8.4 MG/DL (8.8-10.2); CARBON DIOXIDE LEVEL 32 MEQ/L (21-32); CHLORIDE LEVEL 95 MEQ/L (98-107); CK-MB VALUE MASS < 1.0 NG/ML (<3.6); CPK CREATINE PHOSPHOKINASE 19 U/L (39-308); CREATININE FOR GFR 0.63 MG/DL (0.70-1.30); GLOMERULAR FILTRATION RATE > 60.0 (>42); GLUCOSE, FASTING 94 MG/DL (70-100); LIPASE 83 U/L (73-393); MB/CK RELATIVE INDEX 5.26 (< OR =4); SODIUM LEVEL 135 MEQ/L (136-145); TOTAL PROTEIN 6.2 GM/DL (6.4-8.2); TROPONIN I 0.03 NG/ML (< 0.10)
[2018-05-09] MEDS ORDERED: ISOVUE-370 76% 100ML VIAL (Q9967) As Ordered (11:16)
[2018-05-09 13:32] LABS: CPK CREATINE PHOSPHOKINASE 19 U/L (39-308); TROPONIN I 0.03 NG/ML (< 0.10)
[2018-05-09 13:33] LABS: CK-MB VALUE MASS < 1.0 NG/ML (<3.6); MB/CK RELATIVE INDEX 5.26 (< OR =4)
[2018-05-09] MEDS ORDERED: MORPHINE SULFATE ORAL SOLN 10 MG/5 ML UD PO (14:45)
[2018-05-09] MEDS: MORPHINE 10MG/0.5ML ORAL CONCENTRATE SOLUTION U/D PO (14:52)
== END 2018-05-09 15:07 | disposition home or self-care (01) ==
LOC: M ED 09:14
DX: R07.89 Other chest pain (principal); T88.7XXA Unspecified adverse effect of drug or medicament, initial encounter; Y92.9 Unspecified place or not applicable; Y93.9 Activity, unspecified; I45.10 Unspecified right bundle-branch block; Z85.819 Personal history of malignant neoplasm of unspecified site of lip, oral cavity, and pharynx; K80.20 Calculus of gallbladder without cholecystitis without obstruction; I70.209 Unspecified atherosclerosis of native arteries of extremities, unspecified extremity; G89.29 Other chronic pain; M54.9 Dorsalgia, unspecified; F11.10 Opioid abuse, uncomplicated; F10.20 Alcohol dependence, uncomplicated; I25.10 Atherosclerotic heart disease of native coronary artery without angina pectoris; Z79.4 Long term (current) use of insulin; Z79.899 Other long term (current) drug therapy
CPT/HCPCS: Q9967

== ENCOUNTER → 2019-01-14 | Outpatient (CLI) | payer MEDICARE, BC ==
[~2019-01-14] MED LIST changes: -/GLIM4TA OR; -/MOXI40TA OR; -/PANT40TA OR; -/TAMS4CA GT; +AMAR1TAB6 OR; +ATIV1TAB7 PO; +AVEL1TAB2 OR; +DIAZ5TAB PO; +DICL1GEL3 TD; +DIFI200T PO; -DOCU10ELUD PO; +DOCU5LIQ PO; +DULO1CAP PO; +FIRS50SO PO; +FLOM0.4C39 GT; +FLOM0.4C39 PO; -FLOM5CAP PO; +FOLI1TAB11 PO; +HUMA100I5 SC; +INSUHUMDS SC; +ISOVUE-370 76% 100ML VIAL (Q9967) As Ordered ONE; +LORA1TAB12 PO; +MORP20SO3 PO; +MORP20SOL PO; +MUPI30CR TOP; +NITR0.4S14 SL; +NYST1POW9 TOP; +NYSTOI TOP; +OXYC-517 PO; -OXYCO5TA PO; +PARO40TA3 PO; +PATIENT COMMENT; +PRED10TA2 PO; +PROT1TAB2 OR; +RANI150T PO; +RAPA8CAP4 PO; +SIMV40TA2 PO; +TRAZO50TA PO; +VANC250C3 PO; +ZANT150T15 PO; -ZANT1TAB PO
--- NOTE | 2019-01-14 13:13 | REP ---
Soft tissue CT study of the neck with IV contrast: History: Mass in the left side of the neck. 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 Comparison neck CT study: December 18, 2017. Prior CT study from April 26, [address] contrast dose: 75 mL of intravenous Isovue [address] findings: Preliminary insurance follow up rep radiograph demonstrates that the patient is edentulous. A opaque BB is affixed to the skin at the site of the palpable lump on the left side of the neck. There is no evidence of neck mass or adenopathy here. There is evidence of post radiation change. The BB is along the course of the normal caliber sternocleidomastoid muscle on the left. Thyroid lobes are normal and symmetric. Parotid glands are fatty replaced but symmetric. Submandibular glands appear to be fatty replaced as well post radiation. There is more soft tissue fullness on the right than there is on the left. This is unchanged. There is less fibrosis along the course of the sternocleidomastoid muscle on the right than was present previously. Extensive vascular calcification is noted in the carotid arteries as before. Impression: No neck mass or adenopathy is seen. Post radiation changes noted. Electronically Signed by Aniket Sewell MD 01/14/2019 01:16 P
== END ==
LOC: M RAD 11:07
PROVIDERS: ATTEND Physician Assistant Medical
DX: R22.1 Localized swelling, mass and lump, neck (principal); Z92.3 Personal history of irradiation
CPT/HCPCS: 70491; Q9967